=== PATIENT | male | born 1955 | race Caucasian/White ===

== ENCOUNTER 2019-09-06 19:00 | Outpatient (CLI) | payer MEDICARE | END 2019-09-06 19:01 | disposition home or self-care (01) | LOC: SLEEPLAB 19:00 | PROVIDERS: ATTEND Internal Medicine Pulmonary Disease | DX: G47.33 Obstructive sleep apnea (adult) (pediatric) (principal); R53.83 Other fatigue; E66.9 Obesity, unspecified; I51.89 Other ill-defined heart diseases; J44.9 Chronic obstructive pulmonary disease, unspecified; I25.10 Atherosclerotic heart disease of native coronary artery without angina pectoris; Z68.35 Body mass index [BMI] 35.0-35.9, adult | CPT/HCPCS: 95811 ==

== ENCOUNTER 2019-11-04 15:21 | Outpatient (CLI) | payer MEDICARE ==
--- NOTE | 2019-11-04 15:41 | RAD ---
EXAM: Chest 2 views: HISTORY: Dyspnea COMPARISON: 01/16/2018 FINDINGS: There is a normal-sized cardiomediastinal silhouette. There is no evidence of consolidation, mass, or pleural effusion. Degenerative changes are seen in the spine. Lucency projecting over the right chest wall represents a skinfold. IMPRESSION: No evidence of acute cardiopulmonary disease
== END 2019-11-04 15:22 | disposition home or self-care (01) ==
LOC: BICRAD 15:21
PROVIDERS: ATTEND Internal Medicine Pulmonary Disease
DX: R06.02 Shortness of breath (principal)
CPT/HCPCS: 71046